=== PATIENT | female | born 1955 | race Caucasian/White ===

== ENCOUNTER 2016-11-03 15:13 | Inpatient (IN) ==
[2016-11-03 17:05] VITALS: BP 120/68
[2016-11-03] MEDS ORDERED: NS 1,000 ML IV SCH (17:26)
[2016-11-03] MEDS ORDERED: TYLENOL PO PRN (17:26)
[2016-11-03] MEDS ORDERED: ZOFRAN IV PRN (17:26)
[2016-11-03] MEDS ORDERED: DUONEB (A & A) INH PRN (17:33)
[2016-11-03] MEDS ORDERED: SODIUM CHLORIDE 0.9% INJ SCH (17:45)
--- NOTE | 2016-11-03 19:08 | HISTORY AND PHYSICAL ---
PRIMARY CARE PROVIDER: Dr. Haas. CHIEF COMPLAINT: Weight loss, thrush, and dysphagia. HISTORY OF PRESENT ILLNESS: Ms. Sandi Lee is a 61-year-old female with no previous hospital admissions, so medical information was obtained via medical record as best as could be. She was a direct admit via Dr. Renteria in order to have a PEG tube placement for tomorrow, . This patient arrived this evening with intoxication according to nursing staff and as soon as she arrived she essentially left prior to being assessed by our team. So information that was obtained, she was apparently went today, was going to have a PEG tube placed today, and it was decided to withhold having PEG tube placement secondary to oral thrush. She was given Diflucan. Recent barium swallow on 10/15/2016 showed that she had aspiration with thin liquids, so much as with thickened liquids. She has been experiencing weight loss. She has a BMI of 15.2. Apparently she had oral Janneth and she has been having difficulties with her swallowing. She presented according to nursing staff intoxicated with a beer in a cup. She left prior to being assessed. PAST MEDICAL HISTORY: COPD with mucus plugging, chronic bronchitis, large hiatal hernia, complicated right kidney cyst, arthrosclerosis of the iliac arteries and aorta, throat cancer, hypothyroidism, chronic pain syndrome with anxiety, chronic constipation, and GERD. PAST SURGICAL HISTORY: Unable to obtain. There is no documentation anywhere in her chart of surgical history. SOCIAL HISTORY: I believe that she was possibly on hospice. She was living at [facility] in a camper. Otherwise, alcohol history, I have not been able to obtain but she did arrive according to nursing staff with a glass of alcohol and was intoxicated. FAMILY HISTORY: Unable to obtain. REVIEW OF SYSTEMS: Unable to obtain as patient was not available for assessment. ALLERGIES: Penicillins. HOME MEDICATIONS: Albuterol, baclofen, Lasix, Neurontin, Amado 10, Combivent inhaler, Synthroid, lorazepam, Singulair, morphine, Prilosec, potassium chloride, prednisone, and Senokot. PHYSICAL EXAMINATION: Unable to obtain as patient left prior to assessment. LABORATORY DATA: This was drawn preoperatively, prior to the procedure being canceled. White blood cell count 7,000, hemoglobin 14, hematocrit 42, platelet count 172,000. Sodium 133, potassium 3.7, BUN 6, creatinine 0.5, glucose 103. VITAL SIGNS: She is 5 feet 7 inches tall, 96 pounds, BMI 16. Her vitals on admit, temperature 98.5 degrees, heart rate 84, respiratory rate 21, blood pressure 120/68, saturation 96% on room air. IMAGING: None. ASSESSMENT AND PLAN: 1. Anorexia with dysphagia. She was going to have PEG tube placement. She was going to get a PICC line with TPN. Dr. Renteria was following. 2. Oral janneth. She had a dose of IV Diflucan 200 mg times once given. 3. Chronic obstructive pulmonary disease. We would have continued her home medications. 4. Hypothyroidism. We would have continued home medications. 5. Chronic pain syndrome and anxiety. We would have continued home medications. 6. Gastroesophageal reflux disease. We were going to start Protonix 40 twice daily. Dictated by DOMINGO Patiño for Zachary Mckeon MD cc: DOMINGO Patiño MD Jeanette Keith, MD Bhavna Gowda, MD
--- NOTE | 2016-11-03 19:47 | PROGRESS NOTE ---
DATE: 11/03/2016 REFERRING PHYSICIAN: Dr. Izabella Haas. SUBJECTIVE: The patient is a 61-year-old white female who has survived throat cancer. She was referred to our practice for PEG tube placement due to severe malnutrition. She presented this morning for an EGD with PEG placement. Unfortunately, she was found to have thrush. The patient left the hospital long enough to secure her home, and to make care arrangements for her pet. When she returned this afternoon, she was visibly intoxicated and belligerent, according to the nursing staff. She was in her room drinking beer from a [employer] cup. Because things were not "moving fast enough," the patient left AMA. She did leave behind her [employer] cup. I have inspected it and smelled it. It is filled with beer. Based on this, the patient is discharged to home. I will discuss her care with Dr. Izabella Haas. We will administer a patient discharge letter and suggests that she find another physician to provide care, in light of her behavior and ongoing alcohol abuse. cc: MD Izabella Goldberg MD
[2016-11-03] MEDS ORDERED: PROTONIX IV SCH (20:00)
[2016-11-03] MEDS ORDERED: ATIVAN PO SCH (21:00)
--- NOTE | 2016-11-03 22:30 | DISCHARGE SUMMARY ---
ADMISSION DATE: 11/03/2016 DISCHARGE DATE: 11/03/2016 HOSPITAL COURSE: Ms. Sandi Lee is a 61-year-old female with a history of anorexia, oral Iliana, dysphagia who was going to be placed overnight receiving Diflucan, TPN for malnourishment and a PEG tube secondary to her dysphagia but when patient arrived as a direct admit this evening apparently per the Nursing Staff she was carrying a cup of beer. She was belligerent and left AMA prior to being assessed by our group. The staff notified us and also notified Dr. Renteria. Dictated by DOMINGO Patiño for Zachary Mckeon MD cc: DOMINGO Patiño MD Jeanette Keith, MD
[2016-11-04] MEDS ORDERED: SYNTHROID PO SCH (09:00)
== END 2016-11-03 18:15 | disposition left against medical advice (07) ==
LOC: OR 15:13 → SUATTDRO 15:15 → 3N 15:15
PROVIDERS: ADMIT Internal Medicine Gastroenterology; ATTEND Internal Medicine

== ENCOUNTER 2016-11-19 21:00 | Inpatient (IN) ==
[2016-11-19] MEDS ORDERED: DUONEB (A & A) ONE (21:21)
[2016-11-19] MEDS ORDERED: SOLU-MEDROL IV ONE (21:21)
[2016-11-19] MEDS ORDERED: DUONEB (A & A) INH ONE (21:21)
[2016-11-19] MEDS ORDERED: ALBUTEROL NEB INH ONE (21:21)
[2016-11-19] MEDS ORDERED: DILAUDID IV ONE (21:22)
[2016-11-19] MEDS ORDERED: ZOFRAN IV ONE (21:22)
[2016-11-19 21:56] LABS: AGAP 15; ALBUMIN 3.6 g/dL (3.5-5.0); ALKALINE PHOSPHATASE 56 U/L (32-104); BUN 6 mg/dL (8-22); CALCIUM 9.1 mg/dL (8.8-10.2); CHLORIDE 90 mmol/L (98-107); COSMO 262; GOT 23 U/L (10-30); GPT 14 U/L (10-36); POTASSIUM 3.7 mmol/L (3.5-5.1); SODIUM 131 mmol/L (136-145); TCO2 26 mmol/L (25-35); TOTAL PROTEIN 6.6 g/dL (6.3-8.3)
[2016-11-19 22:02] LABS: BASO% 0.1 % (0.0-0.8); HEMATOCRIT 43.7 % (37.0-47.0); HEMOGLOBIN 15.7 g/dL (12.0-16.0); IMM GRAN# 0.08 X1000 (0.0-0.04); IMM GRAN% 0.3 % (0.0-0.5); LYMPH% 3.7 % (20.5-51.1); MANUAL DIFF NEEDED? NO; MCH 33.8 PG (27-31); MCHC 35.9 g/dL (33-37); MCV 94.2 FL (81-99); MONO# 1.19 X1000 (0.11-0.59); MONO% 4.9 % (1.7-9.3); MPV 8.9 FL (7.4-10.4); PLT 207 X1000 (130-400); RBC 4.64 XMIL (4.2-5.4)
[2016-11-19] MEDS ORDERED: LEVAQUIN 500 MG/D5W 500 MG/100 ML IVPB IV ONE (22:26)
[2016-11-19] MEDS ORDERED: NICODERM PATCH TD ONE (22:36)
[2016-11-19] MEDS ORDERED: XANAX PO ONE (22:37)
[2016-11-19] MEDS ORDERED: ZOFRAN IV PRN (22:39)
[2016-11-19] MEDS: DUONEB (A & A) INH SCH (22:57)
[2016-11-20] MEDS: DILAUDID IV PRN ×3 (00:17→08:23)
--- NOTE | 2016-11-20 01:43 | PROVIDER DOCUMENTATION ---
This chart was entered by Venus Coreas Scribe, acting as scribe for Raffy Kim MD. HPI-Respiratory General - General Chief Complaint: Shortness of Breath Stated Complaint: "RIB PAIN" Time Seen by Provider: 11/19/16 21:13 Source: patient Allergies/Adverse Reactions: Patient Allergies Allergy/AdvReac Type Severity Reaction Status Date / Time Penicillins Allergy ANAPHYLAXIS Verified 11/02/16 09:06 Home Medications: Home Medication List Medication Instructions Recorded Confirmed Last Taken Type Albuterol Sulfate [Albuterol 2 puff INH PRN PRN 11/19/16 11/19/16 Unknown History Sulfate Hfa] Alprazolam [Alprazolam] 0.5 mg PO PRN PRN 11/19/16 11/19/16 Unknown History Baclofen [Baclofen] 20 mg PO 4XDAY 11/19/16 11/19/16 Unknown History Dronabinol 5 mg PO BID 11/19/16 11/19/16 Unknown History Furosemide 20 mg PO DAILY 11/19/16 11/19/16 Unknown History Gabapentin 300 mg PO TID 11/19/16 11/19/16 Unknown History Hydrocodone/Acetaminophen 1 tab PO 4XDAY PRN 11/19/16 11/19/16 Unknown History [Hydrocodon-Acetaminophn 10-325] Levothyroxine [Synthroid] 50 mcg PO DAILY 11/19/16 11/19/16 Unknown History Morphine E.r. [Ms Contin] 60 mg PO Q8HR PRN 11/19/16 11/19/16 Unknown History Potassium Chloride [Klor-Con M10] 10 meq PO DAILY 11/19/16 11/19/16 Unknown History Prednisone 10 mg PO DAILY 11/19/16 11/19/16 Unknown History Promethazine [Phenergan] 25 mg PO Q6H PRN PRN 11/19/16 11/19/16 Unknown History Sennosides/Docusate Sodium [Senna 1 tab PO BID PRN PRN 11/19/16 11/19/16 Unknown History S Tablet] - History of Present Illness-Resp Nature of Presenting Problem: Pt is a 61 year old female who came to the ED with a cc of SOB and rib pain for one days. Pt reports she ran out of her pain medicine. Quality of Pain: reports: sharp Severity in ED: reports: mild Onset/Duration: reports: this morning Timing: reports: still present Similar Symptoms Previously?: No Recently seen or treated by another doctor?: No Review of Systems - Adult - REVIEW OF SYSTEMS - ADULT Constitutional: denies: chills, fever Eyes: reports: no symptoms reported Ears, Nose, Mouth & Throat: reports: no symptoms reported Cardiovascular: reports: no symptoms reported Respiratory: reports: shortness of breath. denies: cough, pleurisy Gastrointestinal: reports: no symptoms reported Genitourinary: denies: discharge, hematuria Musculoskeletal: reports: other (rib pain). denies: joint pain, joint swelling Integumentary: reports: no symptoms reported Neurological: reports: no symptoms reported Psychiatric: reports: alcohol/drug dependence. denies: emotional problems, suicidal thoughts Endocrine: reports: no symptoms reported Hematologic/Lymphatic: reports: no symptoms reported Allergic/Immunologic: reports: no symptoms reported All Other Systems: Reviewed and Negative Past History - Adult - PAST MEDICAL HISTORY-ADULT Review of Records: reports: Nursing Assessment Review Major Childhood Illnesses: reports: denies history Cardiovascular: reports: denies history Respiratory: reports: COPD Gastrointestinal: reports: denies history Obstetrical/Gynecological: reports: denies history Genitourinary: reports: denies history Musculoskeletal: reports: denies history Neurological: reports: denies history Endocrine/Immune: reports: denies history Other Conditions: reports: denies history - IMMUNIZATION STATUS Childhood Immunizations: See Nurse Assessment Flu Vaccine: See Nurse Assessment - FAMILY HISTORY Family History: reviewed, not pertinent - SOCIAL HISTORY Smoking: cigarettes, greater than 1 pack/day Provider spent 3-5 mins advising pt. on dangers of tobacco.: Discussed manners to quit use, and f/u contacts for add'l counseling. Physical Exam-General - PHYSICAL EXAM-ADULT Initial Vital Signs Reviewed: Yes - CONSTITUTIONAL General Appearance: alert, moderate distress, thin - EYES Eyes: PERRL/EOMI, pink conjunctivae - HEAD, EARS, NOSE, MOUTH & THROAT HENMT: normocephalic/atraumatic, moist mucous membranes - NECK Neck: non-tender, full range of motion - RESPIRATORY Respiratory: decreased breath sounds - CARDIOVASCULAR Cardiovascular: normal peripheral pulses, regular rate, rhythm - GASTROINTESTINAL (ABDOMEN) Abdominal Exam: normal bowel sounds, non tender - MUSCULOSKELETAL Back Exam: normal inspection, no CVA tenderness Extremity: normal range of motion - SKIN Integumentary: normal color, normal turgor - NEUROLOGIC Neurologic: grossly normal - PSYCHIATRIC Psych/Mental Status: normal mood/affect, normal thought content, normal thought process, oriented x 3 Progress - PLAN OF CARE/RESULTS Progress/Plan/Lab Results: Vital Signs - 8 hr 11/19/16 21:04 11/19/16 21:21 11/19/16 21:27 Temperature 98.5 F Pulse Rate 115 H 111 H 95 H Respiratory Rate 20 18 19 Blood Pressure 76/50 67/47 93/48 O2 Sat by Pulse Oximetry 82 L 89 L 92 L 11/19/16 21:36 11/19/16 22:16 Temperature Pulse Rate 97 H 118 H Respiratory Rate 24 22 Blood Pressure 90/61 O2 Sat by Pulse Oximetry 94 L 92 L Laboratory Results - last 24 hr 11/19/16 11/19/16 21:20 21:20 WBC 24.17 H RBC 4.64 Hgb 15.7 Hct 43.7 MCV 94.2 MCH 33.8 H MCHC 35.9 RDW Std Deviation 12.4 Plt Count 207 MPV 8.9 Immature Gran % (Auto) 0.3 Neut % (Auto) 91.0 H Lymph % (Auto) 3.7 L Leon % (Auto) 4.9 Eos % (Auto) 0.0 Baso % (Auto) 0.1 Immature Gran # (Auto) 0.08 H Neut # (Auto) 21.98 H Lymph # (Auto) 0.90 L Leon # (Auto) 1.19 H Eos # (Auto) 0.00 Baso # (Auto) 0.02 Sodium 131 L Potassium 3.7 Chloride 90 L Carbon Dioxide 26 Anion Gap 15 BUN 6 L Creatinine 0.5 Estimated GFR/1.73 m2 > 60 BUN/Creatinine Ratio 12 Glucose 128 H Calculated Osmolality 262 Calcium 9.1 Total Bilirubin 0.80 AST 23 ALT 14 Alkaline Phosphatase 56 Total Protein 6.6 Albumin 3.6 Globulin 3.0 Albumin/Globulin Ratio 1.0 Orders Category Date Time Status CHEST-PORTABLE [RAD] Stat Exams 11/19/16 21:21 Taken CBC WITH ELECTRONIC DIFF [HEME] Stat Lab 11/19/16 21:20 Completed CMP [COMPREHENSIVE METABOLIC PANEL] [CHEM] Stat Lab 11/19/16 21:20 Completed Albuterol 2.5MG/Ipratrop 0.5MG [Duoneb (A & A)] Med 11/19/16 21:21 Discontinued 3 ml .ROUTE .STK-MED ONE Albuterol 2.5MG/Ipratrop 0.5MG [Duoneb (A & A)] Med 11/19/16 21:21 Discontinued 3 ml INH NOW ONE Albuterol [Albuterol Neb] Med 11/19/16 21:21 Discontinued 5 mg INH NOW ONE Alprazolam [Xanax] Med 11/19/16 22:37 Once 0.5 mg PO NOW ONE Hydromorphone [Dilaudid] Med 11/19/16 21:22 Discontinued 1 mg IV NOW ONE Levofloxacin 500 mg/D5w [Levaquin 500 mg/D5w] Med 11/19/16 22:26 Active 500 mg in 100 ml IV NOW Methylprednisolone Sod Succ [Solu-Medrol] Med 11/19/16 21:21 Discontinued 125 mg IV NOW ONE Nicotine Patch [Nicoderm Patch] Med 11/19/16 22:36 Once 21 mg TD NOW ONE Ondansetron [Zofran] Med 11/19/16 21:22 Discontinued 4 mg IV NOW ONE Aerosol Treatments Routine Oth 11/19/16 21:21 Completed Aerosol Treatments Stat Oth 11/19/16 21:21 Completed Result Diagrams: 11/19/16 21:20 11/19/16 21:20 - REASSESSMENT Reassessment #1 Time Reassessed: 22:38 Status: improving - XRAY 1 XRAY Study: Chest Impression: Abnormal (COPD, 2 old right rib fx and at least one new right rib fx ) Departure - Departure Date of Disposition Decision: 11/19/16 Time of Disposition Decision: 22:38 DIAGNOSIS: COPD exacerbation, Throat cancer Rib fracture Qualifiers: Encounter type: initial encounter Rib fracture type: single rib Fracture type: closed Laterality: right Qualified Code(s): S22.31XA - Fracture of one rib, right side, initial encounter for closed fracture Disposition: ADMITTED INPATIENT 09 Certified Medical Emergency: Emergent Condition: Fair Referrals and Follow-Ups: None,PCP [Primary Care Provider] - - Critical Care Note This patient required my direct & personal management of CC.: No This chart was documented by the indicated scribe, (Venus Coreas Scribe) and accurately reflects the services I performed and decisions made by me, Raffy Nguyen MD, as attested by the provider's signature.
[2016-11-20] MEDS: DUONEB (A & A) INH SCH ×6 (03:51→23:35)
[2016-11-20] MEDS ORDERED: MS CONTIN PO PRN (09:23)
[2016-11-20] MEDS ORDERED: SYNTHROID PO SCH (09:30)
--- NOTE | 2016-11-20 09:59 | Diag Imaging Result Doc PS360 ---
CHEST-PORTABLE - 11/19/2016 INDICATION: sob, right rib injury TECHNIQUE: COMPARISON: Chest CT 11/16/2016 FINDINGS: Stable COPD changes. There is worsening in left lower lobe infiltrate. Heart size is grossly normal. IMPRESSION: COPD. Worsening left lower lobe infiltrate. Compatible with aspiration or bronchopneumonia. Electronically signed by Andrea Otto 11/20/2016 9:57 AM
[2016-11-20] MEDS: SOLU-MEDROL IV SCH ×2 (10:50→18:58)
[2016-11-20] MEDS: PRILOSEC PO SCH (10:50)
[2016-11-20] MEDS: LASIX PO SCH (10:51)
[2016-11-20] MEDS: NS 1,000 ML IV SCH ×2 (10:51→19:53)
[2016-11-20] MEDS: KLOR-CON PO SCH (10:51)
[2016-11-20] MEDS: XANAX PO PRN ×2 (10:51→19:53)
[2016-11-20] MEDS: SYNTHROID PO SCH (11:01)
[2016-11-20] MEDS: MS CONTIN PO PRN ×2 (11:01→23:13)
[2016-11-20] MEDS: NORCO-10 PO PRN ×4 (11:02→23:18)
[2016-11-20] MEDS: NEURONTIN PO SCH ×2 (13:01→18:58)
[2016-11-20] MEDS: LIORESAL PO SCH ×4 (13:01→21:49)
--- NOTE | 2016-11-20 13:12 | HISTORY AND PHYSICAL ---
PRIMARY CARE PHYSICIAN: Dr. Izabella Haas. CHIEF COMPLAINT: Shortness of breath and rib pain. HISTORY OF PRESENTING ILLNESS: This is a 61-year-old female who presented to [facility] ER after a friend found her at home in her bed stating that she was not feeling well and had increased shortness of breath and some right-sided rib pain. Also, she states that she had run out of her pain medication. When she arrived to the emergency room, her O2 saturation on room air was 82%. Her blood pressure was 76/50. Her white blood cell count was 24.17. Sodium was 131. Her chest x-ray, per ER physician documentation, showed COPD with two old right rib fractures and at least one new right rib fracture. So, she was admitted for further evaluation and treatment. PAST MEDICAL HISTORY: COPD with mucous plugging, throat cancer, hypothyroidism, chronic pain, anxiety, GERD, and chronic constipation. PAST SURGICAL HISTORY: Hysterectomy and a left leg reconstruction. SOCIAL HISTORY: She currently lives alone in an at [facility]. She smokes a pack of cigarettes a day and has done so since the age of 15. She states she drinks 2-3 beers daily, but it is suspected that she drinks more and denies any illicit drug use. ALLERGIES: Penicillin. HOME MEDICATIONS: 1. We will hold her albuterol inhaler 2 puffs p.r.n. 2. We will continue her Alzapam 1 mg p.o. b.i.d.. 3. Baclofen 20 mg p.o. 4 times daily. 4. Lasix 20 mg p.o. daily. 5. Gabapentin 300 mg p.o. t.i.d. 6. Hydrocodone 10 one p.o. 4 times daily. 7. Levothyroxine 50 mcg p.o. daily. 8. MS Contin 60 mg p.o. q.8 hours. 9. Omeprazole 40 mg p.o. daily, and potassium 10 me p.o. daily. LABORATORY DATA: White blood cell count of 24.17. Hemoglobin 15.7, hematocrit 43.7, platelets 207,000. Sodium 131, potassium 3.7, chloride 90, CO2 of 26. BUN of 6, creatinine 0.5, glucose 128. Chest x-ray per ER physician interpretation showed COPD with at least 2 old right rib fractures and at least 1 new right rib fracture. REVIEW OF SYSTEMS: She denied any fever, chills, blurred vision, dizziness, chest pain. She has a nonproductive, cough shortness of breath. Denied any abdominal pain, constipation, diarrhea, burning or hurting with urination. PHYSICAL EXAMINATION: VITAL SIGNS: On arrival, she had a temperature of 98.5 degrees, pulse 115, respirations 20, blood pressure was 76/50, saturating 82% on room air. Currently, her blood pressure is 91/59, and she is saturating 94% on 3-1/2 L via nasal cannula. GENERAL: This is a 61-year-old female who is lying in the bed and answers questions appropriately. HEENT: Normocephalic and atraumatic. Pupils are equal, round, and reactive to light. Extraocular movements are intact. The oropharynx and nares are clear. NECK: Supple. LUNGS: With decreased breath sounds throughout entire lung field. Equal lung expansion and chest wall movement noted. HEART: Regular rate and rhythm. No murmurs, rubs, or gallops. ABDOMEN: Soft, nontender, nondistended. Bowel sounds are present x4 quadrants. EXTREMITIES: No clubbing, cyanosis, or edema. NEUROLOGICAL: The cranial nerves 2-12 are grossly intact. ASSESSMENT: 1. An acute chronic obstructive pulmonary disease exacerbation. 2. Acute respiratory failure. 3. Hypotension. 4. Right rib fracture. 5. Tobacco abuse. PLAN: She was admitted to the medical unit at [place], and we will place her on a regular diet. She will be on DuoNebs q.4 hours. Will continue her home medications. Placed on Levaquin 500 mg IV q. 24, Solu-Medrol 80 mg IV q. 8 and wean as she improves. We will place on normal saline at 125 mL an hour. Dilaudid 1 mg IV q. 2 hours p.r.n. and we will recheck a CBC and CMP in the a.m. Dictated by DOMINGO Bradley for David Steinberg MD cc: DOMINGO Bradley MD Bhavna Gowda, MD
[2016-11-20] MEDS: NICODERM PATCH TD SCH (15:31)
[2016-11-20] MEDS ORDERED: LEVAQUIN 500 MG/D5W 500 MG/100 ML IVPB IV SCH (22:00)
[2016-11-20] MEDS ORDERED: TUMS PO ONE (23:40)
[2016-11-21] MEDS: SOLU-MEDROL IV SCH (00:42)
[2016-11-21] MEDS: DUONEB (A & A) INH SCH ×2 (04:20→07:30)
[2016-11-21] MEDS: MS CONTIN PO PRN (05:41)
[2016-11-21] MEDS: NORCO-10 PO PRN ×2 (05:41→11:23)
[2016-11-21] MEDS: SYNTHROID PO SCH ×2 (05:42→06:22)
[2016-11-21] MEDS: NS 1,000 ML IV SCH ×2 (05:43→09:05)
[2016-11-21 06:01] LABS: HEMATOCRIT 34.1 % (37.0-47.0); HEMOGLOBIN 11.6 g/dL (12.0-16.0); IMM GRAN# 0.02 X1000 (0.0-0.04); IMM GRAN% 0.2 % (0.0-0.5); LYMPH# 0.29 X1000 (1.2-3.4); LYMPH% 2.4 % (20.5-51.1); MANUAL DIFF NEEDED? YES; MCH 32.9 PG (27-31); MCV 96.6 FL (81-99); MONO% 2.5 % (1.7-9.3); MPV 8.8 FL (7.4-10.4); NEUT% 94.9 % (42.2-75.2); PLT 143 X1000 (130-400); RBC 3.53 XMIL (4.2-5.4)
[2016-11-21 06:22] LABS: AGAP 8; ALBUMIN 3.1 g/dL (3.5-5.0); ALKALINE PHOSPHATASE 50 U/L (32-104); BUN 5 mg/dL (8-22); CALCIUM 8.9 mg/dL (8.8-10.2); CHLORIDE 99 mmol/L (98-107); COSMO 272; GOT 12 U/L (10-30); GPT 11 U/L (10-36); POTASSIUM 4.2 mmol/L (3.5-5.1); SODIUM 136 mmol/L (136-145); TCO2 29 mmol/L (25-35); TOTAL PROTEIN 5.9 g/dL (6.3-8.3)
[2016-11-21 06:25] LABS: BANDS 8 % (0-1); LYMPHS 4 % (21-51); MONO 2 % (1-9)
[2016-11-21] MEDS: NICODERM PATCH TD SCH (09:23)
[2016-11-21] MEDS: XANAX PO PRN (09:23)
[2016-11-21] MEDS: NEURONTIN PO SCH (09:24)
[2016-11-21] MEDS: KLOR-CON PO SCH (09:24)
[2016-11-21] MEDS: PRILOSEC PO SCH (09:24)
[2016-11-21] MEDS: LIORESAL PO SCH (09:24)
[2016-11-21] MEDS: LASIX PO SCH (09:24)
[2016-11-21 11:32] VITALS: BP 137/66
[2016-11-21] MEDS ORDERED: SOLU-MEDROL IV SCH (13:30)
--- NOTE | 2016-11-22 06:38 | DISCHARGE SUMMARY ---
ADMISSION DATE: 11/19/2016 DISCHARGE DATE: 11/21/2016 DISCHARGE DIAGNOSES: 1. Chronic opiate usage and over usage. 2. Chronic obstructive pulmonary disease with mild exacerbation. 3. Chronic respiratory failure with questionable acute change. 4. Hypotension, resolved. 5. Right rib fracture, which likely led to over usage of her current pain medication regime. 6. Chronic tobacco abuse. 7. Chronic hypoxemia. 8. Chronic noncompliance. Patient admits that she takes her oxygen when she desires it. Does not use it on any regular basis at home. 9. Leukocytosis, resolved. White count 24 on admit, 12 on discharge. 10. Hyponatremia, resolved. 11. Mild protein calorie malnutrition. Discussed with patient at this point that she does not need to Marinol, as her albumin is relatively stable at 3.1. CONSULTATIONS: None. PROCEDURES: None. BRIEF HOSPITAL COURSE: Patient is a 61-year-old female, who is admitted as on the [facility]. She had a chest x-ray that demonstrated left lower lobe infiltrate. This certainly could be aspiration. She was treated in usual fashion. Placed on IV antibiotics, IV steroids, and she continued to improve. On discharge, she is awake, alert. She notes that she is in her normal state of health and is asking to go home. On multiple occasions discussed with Ms. Young that I will not write for 1 mg 3 times a day of Xanax, given the fact that she is on multiple Jewell and morphine ER a day. Discussed with her that the combination of these products certainly could lead to an untimely ; however, Ms. Lee notes that has not happened to her so for. Discussed with her again that this is not an option and that this is not anything that we will participate in. DISPOSITION: The patient will be discharged home. She will continue her home medications of Lasix 20 mg daily, baclofen, Xanax 0.5 b.i.d. p.r.n., Neurontin 300, Jewell, and MS Contin pain clinic, omeprazole, and potassium. We will discharge her home on Levaquin and a Medrol Dosepak for the next 7 days. TIME SPENT: Forty-five minutes was spent in total care. cc: David Steinberg MD
[2016-11-22] MEDS ORDERED: LEVAQUIN PO SCH (09:00)
== END 2016-11-21 12:40 | disposition home or self-care (01) ==
LOC: P.MEDSURG 21:00 → P.ED 21:00 → SUATTDRO 23:03 → OBSVTOIN 23:03
PROVIDERS: ATTEND Family Medicine